=== PATIENT | female | born 2000 | race African-American/Black ===

== ENCOUNTER 2024-08-31 21:30 | Emergency (ER) | payer OTHER, MEDICAID ==
[~2024-08-31] VITALS: Ht 170.2 cm; Wt 59.0 kg
[2024-08-31 21:34] VITALS: O2SAT 100
[2024-08-31] MEDS ORDERED: IBUP-2029 MT (23:04)
[2024-09-01 00:26] VITALS: BP 124/85; PULSE 80; RESP 16; TEMP 36.78072; O2SAT 100
== END 2024-09-01 00:49 | disposition left against medical advice (07) ==
LOC: ER 21:30
DX: R07.89 Other chest pain (principal)
CPT/HCPCS: 71045; 99283; Z7610 ×2; A4606